=== PATIENT | female | born 1955 ===

== ENCOUNTER 2019-07-26 19:05 | Emergency (ER) | payer MEDICAID ==
[~2019-07-26] VITALS: Ht 172.7 cm; Wt 71.7 kg
--- NOTE | 2019-07-26 19:54 | NUR ---
TASK RN: PT AMBULATED STEADILY FROM LOBBY TO ROOM WITH RN. NAD NOTED
[2019-07-26 20:10] LABS: BASOPHILS # (AUTO) 0.05 x10^3/uL (0-0.1); BASOPHILS % (AUTO) 1 % (0-1); EOSINOPHILS % (AUTO) 2 % (1-7); LYMPHOCYTES # (AUTO) 2.32 x10^3/uL (1-3.4); LYMPHOCYTES % (AUTO) 24 % (22-44); MD NO; MEAN CORPUSCULAR HEMOGLOBIN 31.2 pg (27.0-34.8); MEAN CORPUSCULAR HGB CONC 33.7 g/dL (32.4-35.8); MEAN CORPUSCULAR VOLUME 92.4 fL (80-100); MEAN PLATELET VOLUME 7.4 fL (7.4-10.4); MONOCYTES # (AUTO) 0.46 x10^3/uL (0.2-0.8); MONOCYTES % (AUTO) 5 % (2-9); NEUTROPHILS % (AUTO) 69 % (42-75); PLATELET COUNT 414 x10^3/uL (130-400); RED BLOOD COUNT 3.72 x10^6/uL (3.82-5.3); RED CELL DISTRIBUTION WIDTH 13.3 % (9.6-15.2)
[2019-07-26 20:17] LABS: ANION GAP 8 mmol/L (5-15); CALCIUM 8.8 mg/dL (8.5-10.1); CHLORIDE 108 mmol/L (98-107); CREATININE 0.89 mg/dL (0.55-1.02)
--- NOTE | 2019-07-26 21:23 | NUR ---
PT DON'T HAVE IV . PUT 20G IN RIGHT AC FOR CTA. SENT PT BACK TO ER WITH IV INTACT.
[2019-07-26] MEDS ORDERED: OMNIPAQUE 350 MG/ML, 100ML BOTTLE ONE (21:31)
[2019-07-26 21:51] VITALS: BP 118/50
[2019-07-26] MEDS ORDERED: ASPIRIN 325 MG TABLET EC ONE (22:00)
[2019-07-26] MEDS ORDERED: ASPIRIN 325 MG TABLET PO ONE (22:00)
== END 2019-07-26 22:22 | disposition home or self-care (01) ==
LOC: ED 20:05
DX: R20.2 Paresthesia of skin (principal); R42 Dizziness and giddiness; R53.1 Weakness; R94.31 Abnormal electrocardiogram [ECG] [EKG]; R41.0 Disorientation, unspecified
CPT/HCPCS: 36415; 70450; 70496; 70498; 80048; 85025; 93005; 99285; Q9967